=== PATIENT | female | born 1995 | race Two or more races ===

== ENCOUNTER 2017-01-24 20:55 | Emergency (ER) | payer MEDICAID, OTHER ==
[2017-01-24] MEDS ORDERED: DEXAMETHASONE 4 MG/ML VIAL IVP ONE (21:53)
[2017-01-24] MEDS ORDERED: KETAMINE 100 MG/10 ML SYR IVP ONE (21:53)
[2017-01-24] MEDS ORDERED: KETOROLAC 15 MG/1 ML SDV IVP ONE (21:53)
--- NOTE | 2017-01-24 21:58 | EDPHY ---
H & P Stated Complaint: LOW BACK PAIN X 4 YEARS Time Seen by Provider: 01/24/17 21:28 HPI/ROS: CHIEF COMPLAINT: Low back pain x4 years, worse tonight HISTORY OF PRESENT ILLNESS: 21-year-old female history of low back pain for the past 4 years after giving to her child, works as a dental hygienist, states that the course of her work today she developed progressive low back pain. She describes it as primarily in her bilateral buttocks with no radicular symptoms into her lower extremities. Pain is reproducible with range of motion. No trauma. No fall. No weakness. No incontinence. No retention. No saddle anesthesia. No urinary abnormality. She has been seen at the [facility] for similar, never had MRI of back PRIMARY CARE PROVIDER:the [facility] REVIEW OF SYSTEMS: A ten point review of systems was performed and is negative with the exception of the items mentioned in the HPI PAST MEDICAL & SURGICAL HISTORY: low back pain x4 years SOCIAL HISTORY: nonsmoker. No IV drug use. PHYSICAL EXAM (Prior to examination, patient consented to physical exam, hands were washed and my usual and customary physical exam procedures followed) 1) GENERAL: Well-developed, well-nourished, alert and oriented. Appears uncomfortable 2) HEAD: Normocephalic, atraumatic 3) HEENT: Pupils equal, round, reactive to light bilaterally. Sclera anicteric. Nasopharynx, oropharynx, clear, no lesions. 4) NECK: Full range of motion, no meningeal signs. 5) LUNGS: Clear auscultation bilaterally, no wheezes, no rhonchi, no retractions. 6) HEART: Regular rate and rhythm, no murmur, no heave, no gallop. 7) ABDOMEN: No guarding, no rebound, no focal tenderness, negative McBurney's, negative Amato's, negative Rovsing's, negative peritoneal sign, 8) MUSCULOSKELETAL: Moving all extremities, no focal areas of tenderness, no obvious trauma. No peripheral edema or discoloration. 9) BACK: Positive straight leg lift test right leg approximately 10 degrees.. No CVA tenderness, no midline vertebral tenderness, no fluctuance, no step-off, no obvious trauma, no visual or palpable abnormality. Patella, Achilles reflexes intact to bilateral strength 5/5 10) SKIN: No rash, no petechiae. DIFFERENTIAL DIAGNOSIS: In no particular order, including but not limited to, fracture, sprain/strain, cauda equina, spinal infectious etiology. MEDICAL DECISION MAKING This patient has been re-evaluated with serial examinations. She did feel transient dizziness and anxiety after being given ketamine. She was observed for period of time given IV fluids and subsequently felt improvement. I empathized with her chronic pain. Informed her that I have a Lower index of suspicion for cauda equina, epidural abscess, epidural hematoma, lumbar myositis , diskitis, as the patient is neurologically intact in the lower extremities, has patella and Achilles reflexes intact and equal bilaterally, has no neurologic deficits, no incontinence, no retention, no midline pain, no fluctuance, afebrile, no flulike symptoms. Pain may be secondary to muscular strain, may be secondary to discogenic etiology. At this point I do not identify definitive indication for emergent MRI, however patient may necessitate this on an outpatient basis. - Personal History LMP (Females 10-55): 8-14 Days Ago Current Tetanus/Diphtheria Vaccine: Yes Current Tetanus Diphtheria and Acellular Pertussis (TDAP): Yes - Medical/Surgical History Hx Asthma: No Hx Chronic Respiratory Disease: No Hx Diabetes: No Hx Cardiac Disease: No Hx Renal Disease: No Hx Cirrhosis: No Hx Alcoholism: No Hx HIV/AIDS: No Hx Splenectomy or Spleen Trauma: No Other PMH: OWER BACK PAIN X 4 YEARS - Social History Smoking Status: Never smoked Constitutional: Initial Vital Signs Temperature (C) 36.7 C 01/24/17 21:00 Heart Rate 94 01/24/17 21:00 Respiratory Rate 18 01/24/17 21:00 Blood Pressure 121/83 H 01/24/17 21:00 O2 Sat (%) 96 01/24/17 21:00 O2 Delivery Mode Room Air Allergies/Adverse Reactions: No Known Allergies Allergy (Unverified 01/24/17 21:02) Home Medications: Medication Instructions Recorded Hydrocodone/APAP 5/325 [[place] 1 tab PO Q6 PRN #10 tab 01/24/17 5/325 (RX)] methylPREDNISolone [Medrol Dose 4 mg PO DAILY #1 ea 01/24/17 Gold] Medical Decision Making - Data Points Laboratory Results: 01/24/17 21:54 Beta HCG, Qual NEGATIVE Medications Given: Discontinued Medications Dexamethasone (Decadron Injection) 8 mg IVP EDNOW ONE Stop: 01/24/17 21:54 Last Admin: 01/24/17 22:08 Dose: 8 mg Ketamine HCl (Ketamine) 12.7 mg 0.2 mg/kg (12.7 mg) IVP EDNOW ONE Stop: 01/24/17 21:54 Last Admin: 01/24/17 22:08 Dose: 12.7 mg Departure - Departure Disposition: Home, Routine, Self-Care Clinical Impression: Low back pain Qualifiers: Chronicity: chronic Back pain laterality: bilateral Sciatica presence: without sciatica Qualified Code(s): M54.5 - Low back pain; G89.29 - Other chronic pain; G89.29 - Other chronic pain Condition: Good Instructions: Acute Low Back Pain (ED) Additional Instructions: Seek medical attention if you develop new or worsening pain, if you develop bladder or bowel dysfunction, numbness around your perineum, foot drop, or any other symptoms that concern you. Referrals: Krystin Castellon PA [Primary Care Provider] - 1-2 days without fail Prescriptions: Hydrocodone/APAP 5/325 [[place] 5/325 (RX)] 1 tab PO Q6 PRN #10 tab PRN Reason: Pain, Severe methylPREDNISolone [Medrol Dose Gold] 4 mg PO DAILY #1 ea
[2017-01-24] MEDS ORDERED: ONDANSETRON 4 MG/2 ML VIAL ONE (22:23)
[2017-01-24] MEDS ORDERED: ONDANSETRON 4 MG/2 ML VIAL IVP ONE (22:27)
[2017-01-25 00:23] VITALS: BP 103/68; PULSE 64; RESP 16; TEMP 98.8; O2SAT 98
== END 2017-01-25 00:22 | disposition home or self-care (01) ==
DX: M54.5 Low back pain (principal); G89.29 Other chronic pain
CPT/HCPCS: 96374; J1100; J1885; J2405

== ENCOUNTER 2017-07-17 18:51 | Emergency (ER) | payer OTHER ==
[2017-07-17 18:56] VITALS: BP 115/69
--- NOTE | 2017-07-17 19:01 | EDPHY ---
H & P Stated Complaint: Lac head from bumping into cabinet door Time Seen by Provider: 07/17/17 19:00 HPI/ROS: Chief Complaint: Minor head injury HPI: The patient presents the ED with a minor head injury. She struck her head on the edge of a cabinet. She did have some bleeding. There is no loss of consciousness. She was concerned about the possibility of a laceration prompting her visit to the ED today. She denies additional injury. She is approximately 18 weeks . Tetanus shot is up-to-date. REVIEW OF SYSTEMS: Neuro: no headache, numbness, weakness Musculoskeletal: as above Skin: As above Source: Patient Exam Limitations: No limitations - Personal History LMP (Females 10-55): EDC: 12/16/17 Current Tetanus Diphtheria and Acellular Pertussis (TDAP): Yes - Medical/Surgical History Hx Asthma: No Hx Chronic Respiratory Disease: No Hx Diabetes: No Hx Cardiac Disease: No Hx Renal Disease: No Hx Cirrhosis: No Hx Alcoholism: No Hx HIV/AIDS: No Hx Splenectomy or Spleen Trauma: No Other PMH: LOWER BACK PAIN,CHRONIC. - Social History Smoking Status: Never smoked - Physical Exam Exam: General Appearance: Alert, no distress Head: Superficial nonsuturable abrasion noted to the left temporal scalp. No hematoma, no bony tenderness Neck: Nontender, trachea midline Constitutional: Initial Vital Signs Temperature (C) 37.2 C 07/17/17 18:52 Heart Rate 80 07/17/17 18:52 Respiratory Rate 16 07/17/17 18:52 Blood Pressure 115/69 07/17/17 18:52 O2 Sat (%) 100 07/17/17 18:52 O2 Delivery Mode Room Air Allergies/Adverse Reactions: No Known Allergies Allergy (Verified 07/17/17 18:52) Home Medications: Medication Instructions Recorded NK [No Known Home Meds] 07/17/17 Medical Decision Making ED Course/Re-evaluation: The patient has a nonsuturable abrasion. She has no additional injury. She has no -related complaints. She will be discharged from the emergency department with customary aftercare instructions and return precautions. Departure - Departure Disposition: Home, Routine, Self-Care Clinical Impression: Scalp abrasion Qualifiers: Encounter type: initial encounter Qualified Code(s): S00.01XA - Abrasion of scalp, initial encounter Condition: Good Instructions: Abrasion (ED) Additional Instructions: 1. Tylenol as needed for pain. 2. Return to the ED for uncontrolled bleeding, severe headache or other concerns. 3. Follow up with your primary care provider as scheduled. Referrals: Krystin Castellon PA [Primary Care Provider] - As per Instructions
== END 2017-07-17 19:17 | disposition home or self-care (01) ==
DX: O9A.212 Injury, poisoning and certain other consequences of external causes complicating pregnancy, second trimester (principal); S00.01XA Abrasion of scalp, initial encounter; Z3A.18 18 weeks gestation of pregnancy; W22.03XA Walked into furniture, initial encounter

== ENCOUNTER 2017-07-29 20:57 | Observation (INO) | payer OTHER | END 2017-07-29 22:00 | disposition home or self-care (01) | LOC: FLD 20:57 | PROVIDERS: ADMIT Obstetrics & Gynecology; ATTEND Obstetrics & Gynecology | DX: O46.90 Antepartum hemorrhage, unspecified, unspecified trimester (principal); Z3A.00 Weeks of gestation of pregnancy not specified ==